=== PATIENT | female | born 2000 | race Caucasian/White ===

== ENCOUNTER 2024-02-02 13:38 | Inpatient (IN) ==
[2024-02-02] MEDS ORDERED: Nalbuphine 10 MG/ML 1 ML VIAL IV PRN (14:24)
[2024-02-02] MEDS ORDERED: Lidocaine 1% VIAL 10 MG/ML 30 ML VIAL INJ PRN (14:24)
[2024-02-02] MEDS: Lactated Ringers 1000 ml BAG 1,000 ML IV ONE (14:36)
[2024-02-02 14:49] LABS: ABS Eosinophils 0.1 10^3/uL (0.0-0.5); ABS Lymphocytes 2.1 10^3/uL (1.0-4.8); ABS Neutrophils 9.5 10^3/uL (1.5-7.6); ABS Nucleated RBC 0.01 10^3/ul; Eosinophil % 0.5 %; Hematocrit 34.6 % (35-45); Hemoglobin 11.2 g/dL (11.5-14.3); Lymphocyte % 16.5 %; Mean Corpuscular Hemoglobin 29.4 pg (27-33); Mean Corpuscular Hgb Conc 32.4 g/dL (31-36); Mean Corpuscular Volume 90.7 fL (80-97); Mean Platelet Volume 7.9 fL (7.5-11.2); Nucleated Red Blood Cells % 0.1 %/100WBC (0.0-0.8); Platelet Count 281 10^3/uL (150-450); Red Blood Count 3.81 10^6/uL (3.63-4.92); Red Cell Distribution Width 14.8 % (12-17); White Blood Count 12.7 10^3/uL (3.8-11.8)
[2024-02-02 15:18] LABS: Urine Benzodiazepine Screen None Detected (None Detect); Urine Cannabinoids Screen None Detected (None Detect); Urine Opiates Screen None Detected (None Detect)
[2024-02-02] MEDS: Dinoprostone 10 MG VAG.SUPP VAGINAL ONE (19:20)
[2024-02-03] MEDS: Prochlorperazine 5 mg/ml 2 ml VIAL (10 mg) IV PRN ×2 (02:42→02:43)
[2024-02-03] MEDS: Buffered Lidocaine 1% SYRIN 1 ml INTRADERM ONE (07:39)
[2024-02-03] MEDS ORDERED: Oxytocin in LR 20,000 MILLI.UNIT/1,000 ML BAG IV SCH (09:55)
[2024-02-03] MEDS: Oxytocin in LR 20,000 MILLI.UNIT/1,000 ML BAG IV SCH ×2 (10:00→19:45)
[2024-02-03] MEDS: Lactated Ringers 1000 ml BAG 1,000 ML IV SCH ×2 (10:00→14:28)
[2024-02-03] MEDS: OBEPIDURAL (200 ML) 200 ML EPIDURAL SCH (13:37)
[2024-02-03] MEDS ORDERED: Sodium Citrate/Citric Acid LIQ 15 ML UDC PO PRN (14:14)
[2024-02-03] MEDS ORDERED: Phenylephrine 40 mcg/mL 10mL (400mcg) SYRINGE IV PUSH PRN ×2 (14:14)
[2024-02-03] MEDS: Lidocaine 1.5% EPI 1:200,000 30 ML SDV ONE (14:25)
[2024-02-03] MEDS: Lactated Ringers 1000 ml BAG 1,000 ML IV ONE (14:27)
[2024-02-03] MEDS: OBEPIDURAL (200 ML) 200 ML EPIDURAL ONE (14:28)
[2024-02-03] MEDS ORDERED: Witch Hazel PAD JAR TOPICAL PRN (21:10)
[2024-02-03] MEDS ORDERED: Dibucaine 1% OINT 28.35 GM TUBE PR PRN (21:10)
[2024-02-03] MEDS ORDERED: Glycerin ADULT 2.4 gm SUPP PR PRN (21:10)
[2024-02-04 07:08] LABS: ABS Lymphocytes 2.9 10^3/uL (1.0-4.8); ABS Monocytes 1.2 10^3/uL (0.0-0.9); ABS Neutrophils 15.1 10^3/uL (1.5-7.6); Eosinophil % 0.2 %; Hematocrit 28.7 % (35-45); Hemoglobin 9.8 g/dL (11.5-14.3); Mean Corpuscular Hemoglobin 31.1 pg (27-33); Mean Corpuscular Hgb Conc 34.1 g/dL (31-36); Mean Corpuscular Volume 91.2 fL (80-97); Mean Platelet Volume 7.6 fL (7.5-11.2); Platelet Count 234 10^3/uL (150-450); Red Blood Count 3.14 10^6/uL (3.63-4.92); White Blood Count 19.2 10^3/uL (3.8-11.8)
[2024-02-04] MEDS: RHO D Immune Globulin (HUMAN) 300 MCG = 1,500 I.U. INJ IM PRN (09:23)
[2024-02-05 07:45] VITALS: BP 129/72
== END 2024-02-05 12:47 | disposition home or self-care (01) | DRG 560 ==
LOC: MCHOBOUT 13:38 → MCHOB 14:29 → UNDODISIN 17:13 → MCHOB 02-03 22:40
PROVIDERS: ADMIT Advanced Practice Midwife